=== PATIENT | male | born 1975 | race Caucasian/White ===

== ENCOUNTER 2016-12-16 12:52 | Emergency (ER) | payer SELFPAY ==
--- NOTE | ~2016-12-16 | ER ---
PATIENT'S NAME: ADI [facility] AGE: 41 Y [address] ROOM: [place], [place] [address] LOCATION: [facility] ADMIT DATE: 12/16/2016 ER/Outpatient Report DISCHARGE DATE: 12/16/2016 FAMILY PHYSICIAN: PHYSICIAN, NO ATTENDING PHYSICIAN: Shivani Rodriguez Time of Arrival: 1252 hours. Time of Evaluation: 1300 hours. IDENTIFICATION: A 41-year-old male. CHIEF COMPLAINT: Chest pain. HISTORY OF PRESENT ILLNESS: The patient is a 41-year-old male, who presents with chest pain that started 2 hours prior to arrival. He said that he just does not feel right. He has pain with a deep breath and feels a little bit more short of breath. Over Memorial weekend, he was hospitalized at [facility] with a PE. He has been on Coumadin, but has not taken it for the last 3 days. He has been traveling back and forth [place] and not getting out, walking around every 2 hours. He has no significant lower extremity edema. PAST MEDICAL HISTORY: ALLERGIES: NO KNOWN DRUG ALLERGIES. CURRENT MEDICATIONS: 1. Coumadin, which he has been off for 3 days. 2. Gralise 300 mg. 3. Morphine 15 mg t.i.d. 4. Hydrocodone 325 mg b.i.d., prescribed by Dr. Pam Bryant. MEDICAL PROBLEMS: PE, chronic pain in his left shoulder and neck. PRIOR SURGERIES: Neck fusion, left knee arthroscopy, left ankle surgery, hernia repair, and appendectomy. SOCIAL HISTORY: The patient is in the process of moving to [place]. Tobacco use, 1 can every 3 days. Alcohol use, social. Drug use, denies. PATIENT'S NAME: ADI [facility] AGE: 41 Y [address] ROOM: [place], [place] [address] LOCATION: [facility] ADMIT DATE: 12/16/2016 ER/Outpatient Report DISCHARGE DATE: 12/16/2016 FAMILY PHYSICIAN: PHYSICIAN, PASHA ATTENDING PHYSICIAN: Shivani Rodriguez FAMILY HISTORY: Positive for premature coronary artery disease. REVIEW OF SYSTEMS: All systems reviewed and negative other than what is noted in the HPI. PHYSICAL EXAMINATION: VITAL SIGNS: Weight 79.7 kg. Blood pressure 132/92, pulse 94, respirations 22, temperature 97.8, and saturations 94%. GENERAL: A 41-year-old male, in no acute distress. HEENT: Head: Normocephalic, atraumatic. Ears: TMs translucent, both ears. Eyes: Pupils equal and reactive to light and accommodation. Extraocular movements intact. Nose: Mucosa pink. No lesions. Mouth: No lesions. Pharynx benign. NECK: Supple. No lymphadenopathy. No nuchal rigidity. LUNGS: Clear to auscultation. Breath sounds are equal. HEART: Regular rate and rhythm. ABDOMEN: Bowel sounds present. Soft, nondistended. No hepatosplenomegaly. No palpable masses. Nontender. SKIN: [place], warm, and dry. No lesions or rashes noted. NEURO: The patient is alert and oriented x4. Cranial nerves 2 through 12 grossly intact. Motor strength 5/5 throughout. Sensation is intact to light touch. No lower extremity edema. No calf tenderness. LABORATORY DATA AND X-RAYS: EKG: Normal sinus rhythm at 97 beats per minute. No acute ST elevation or depression. Q-waves noted in lead III. ProBNP less than 30. Hemoglobin 16.6, hematocrit 46.8, platelets 315, white count 7.6 with a normal differential. INR 1.13. Sodium 137, potassium 3.8, chloride 105, CO2 of 21, BUN 7, creatinine 0.8, blood sugar 113. Liver enzymes normal. Magnesium 2.6. CPK 86, CK-MB less than 0.5. Troponin I less than 0.040. D-dimer 0.56. One- view chest x-ray, no acute process. Pending Radiology over-read. CT PE protocol: Small PE in the distal right main pulmonary artery that extends into the interlobar pulmonary artery and down into the tertiary branches in the medial basal segment on the left. There is a very tiny thrombosis suspected in the left lower lobe branch that is probably a tertiary branch. EMERGENCY DEPARTMENT COURSE: The patient has remained hemodynamically stable throughout his stay here in the emergency room. We did obtain his records from [facility]. Venous Doppler showed a subacute nonocclusive DVT in the left popliteal vein on 12/04. CT PE protocol on 12/03 showed a moderate amount of pulmonary emboli, right more than left. The patient was admitted and placed on IV heparin. He was given Coumadin, and on the day of discharge, INR was 1.8. PATIENT'S NAME: KEMAL JOSHI [facility] AGE: 41 Y [address] ROOM: [place] [address] LOCATION: [facility] ADMIT DATE: 12/16/2016 ER/Outpatient Report DISCHARGE DATE: 12/16/2016 FAMILY PHYSICIAN: PHYSICIAN, NO ATTENDING PHYSICIAN: Shivani Rodriguez IMPRESSION: Pulmonary embolism. PLAN: Discussed with our hospitalist, Dr. Campbell who evaluated the patient in the ER and discussed the plan of care with the patient. The patient would like to be treated as an outpatient. Xarelto 15 mg p.o. was given in the emergency room. The patient will be placed on Xarelto 15 mg b.i.d. for 21 days and then 20 mg daily. He will stop his Coumadin. He will establish care and follow up with his physician of choice in 1 week. He will follow up sooner if any problems or concerns. The patient understands and agrees, and all questions have been answered. SHIVANI RODRIGUEZ MD CAR/melissa /[id number] d: 12/17/16802 t: 12/17/16 1342, OUTPATIENT REPORT
[2016-12-16 13:13] LABS: BASOPHIL # 0.1 K/uL (0.0-0.2); BASOPHIL % 0.8 %; EOSINOPHIL # 0.3 K/uL (0.0-0.5); EOSINOPHIL % 4.1 %; HEMATOCRIT 46.8 % (37.0-53.0); HEMOGLOBIN 16.6 g/dL (12.0-17.0); IMMATURE GRANULOCYTE % 0.3 %; LYMPHOCYTE # 2.9 K/uL (0.8-4.0); LYMPHOCYTE % 38.3 %; MCH 31.8 pg (27.0-34.0); MCHC 35.5 gm/dL (32.0-36.5); MCV 89.7 fl (83.0-98.0); MONOCYTE # 0.5 K/uL (0.0-1.0); MONOCYTE % 6.1 %; MPV 8.8 fl (9.4-12.4); NEUTROPHIL # (ANC) 3.8 K/uL (1.4-9.0); NEUTROPHIL % 50.4 %; NRBC % 0 /100WBC (0-0.00); PLATELET COUNT 315 K/uL (150-450); RBC 5.22 M/uL (4.00-6.00); RDW-CV 11.2 % (11.9-14.6); WBC 7.6 K/uL (4.0-11.0)
[2016-12-16 13:27] LABS: INR - (THERAPEUTIC) 1.13 (0.92-1.07); PROTIME 11.9 SECONDS (9.8-11.4); PTT 26 SECONDS (25-32)
[2016-12-16 13:34] LABS: ALBUMIN 4.1 gm/dL (3.5-5.0); ALK PHOS 72 IU/L (33-138); ALT 50 IU/L (12-78); ANION GAP 14.8 (10.0-19.0); AST 29 IU/L (10-40); BLOOD UREA NITROGEN 7 mg/dL (6-24); CALCIUM 8.8 mg/dL (8.5-10.5); CHLORIDE 105 mMol/L (96-110); CO2 21 mMol/L (22-32); CPK 86 IU/L (35-332); CREATININE 0.8 mg/dL (0.6-1.3); ESTIMATED GFR (MDRD EQUATION) > 60; MAGNESIUM 2.6 mg/dL (1.8-2.6); POTASSIUM 3.8 mMol/L (3.7-5.1); SODIUM 137 mMol/L (135-145); TOTAL BILIRUBIN 0.7 mg/dL (0.0-1.5); TOTAL PROTEIN 7.6 g/dL (6.0-8.4)
== END 2016-12-16 15:30 | disposition disaster alternative care site (69) ==
LOC: GMED 12:52
PROVIDERS: Family Medicine
DX: I26.99 Other pulmonary embolism without acute cor pulmonale (principal); F17.200 Nicotine dependence, unspecified, uncomplicated; Z79.899 Other long term (current) drug therapy; Z90.49 Acquired absence of other specified parts of digestive tract; Z98.890 Other specified postprocedural states; Z86.718 Personal history of other venous thrombosis and embolism; Z79.01 Long term (current) use of anticoagulants
CPT/HCPCS: J7030; Q9967